=== PATIENT | male | born 1960 | race Hispanic/Latino ===

== ENCOUNTER 2016-12-28 13:46 | Outpatient (CLI) | payer BC ==
[~2016-12-28] VITALS: Ht 170.2 cm; Wt 97.5 kg
[2016-12-28] MEDS ORDERED: NAPR220T66 PO (14:39)
[2016-12-30] MEDS ORDERED: HYDR-3812 PO (09:13)
== END 2016-12-28 15:24 ==
LOC: PREOP 13:46
PROVIDERS: ATTEND Surgery
DX: Z01.818 Encounter for other preprocedural examination (principal); L72.3 Sebaceous cyst

== ENCOUNTER 2016-12-30 07:36 | Day surgery (SDC) | payer BC ==
[~2016-12-30] VITALS: Ht 170.2 cm; Wt 97.5 kg
--- NOTE | 2016-12-30 07:35 | Progress Note-Pre Operative ---
Pre-Operative Progress Note H&P Reviewed The H&P was reviewed, patient examined and no changes noted. Date H&P Reviewed: Dec 30, 2016 Time H&P Reviewed: 07:35 Pre-Operative Diagnosis: Sebaceous cyst -pre-sternal region HERNÁN LAIRD MD Dec 30, 2016 7:35 am
[~2016-12-30 07:36] MED LIST: NAPR220T66 PO
[2016-12-30 07:55] VITALS: BP 153/85
[2016-12-30] MEDS ORDERED: ceFAZolin 2 GM/50 ML NS 50 ML ONE (08:04)
[2016-12-30] MEDS ORDERED: FAMOTIDINE 20MG/2ML IV (PEPCID) ONE (08:10)
[2016-12-30] MEDS ORDERED: SCOPOLAMINE 1.5 MG (TRANSDERM-SCOP) PATCH ONE (08:10)
[2016-12-30] MEDS ORDERED: ONDANSETRON 4 MG/2 ML (SDV) Z0FRAN ONE (08:10)
[2016-12-30] MEDS ORDERED: LACTATED RINGERS 1,000 ML IV PRN (08:17)
[2016-12-30] MEDS ORDERED: ONDANSETRON 4 MG/2 ML (SDV) Z0FRAN IV ONE (08:30)
[2016-12-30] MEDS ORDERED: SCOPOLAMINE 1.5 MG (TRANSDERM-SCOP) PATCH TOP ONE (08:30)
[2016-12-30] MEDS ORDERED: ceFAZolin 2 GM/NS 50 ML IV ONE (08:30)
[2016-12-30] MEDS ORDERED: FAMOTIDINE 20MG/2ML IV (PEPCID) IV ONE (08:30)
[2016-12-30] MEDS ORDERED: CATHETER FLUSH 10 ML SYR IV PRN (08:30)
[2016-12-30] MEDS ORDERED: fentaNYL INJECTION 100 MCG/2 ML AMP ONE (08:40)
[2016-12-30] MEDS ORDERED: proPOfol 200 MG/20 ML (DIPRIVAN) VIAL IV ONE (08:40)
[2016-12-30] MEDS ORDERED: MIDAZOLAM 2 MG/2 ML (VERSED) VIAL ONE (08:40)
[2016-12-30] MEDS ORDERED: BUP/EPI 0.25% 1:200,000 (MARCAINE) 30 ML VIAL ONE (08:44)
--- NOTE | 2016-12-30 09:12 | Progress Note-Post Operative ---
Post-Operative Progess Note Surgeon (s)/Water Sander (s) Surgeon HERNÁN LAIRD MD Water Sander: Nilsa Calles Pre-Operative Diagnosis Sebaceous cyst -pre-sternal region Post-Operative Diagnosis Same Post-Op Procedure Note Date of Procedure: Dec 30, 2016 Name of Procedure Performed: Excision Description of the Procedure: See operative report Findings of the Procedure see operative report Anesthesia Type Gen. Estimated blood loss (mL): Minimal Specimen(s) collected/removed sebaceous cyst HERNÁN LAIRD MD Dec 30, 2016 9:12 am
[2016-12-30] MEDS ORDERED: HYDR-3812 PO (09:13)
--- NOTE | 2016-12-30 09:13 | Discharge Inst-Simple/Standard ---
Discharge Inst-Standard Discharge Medications New, Converted or Re-Newed RX: RX on Chart Patient Instructions/Follow Up Plan of Care/Instructions/FU: Dressings off in 48 hours. Follow with my nurse in 2 weeks for suture removal Activity as Tolerated: Yes Discharge Diet: No Restrictions HERNÁN LAIRD MD Dec 30, 2016 9:13 am
[2016-12-30] MEDS ORDERED: LACTATED RINGERS 1,000 ML IV ONE (09:21)
[2016-12-30] MEDS ORDERED: SEVOFLURANE (ULTANE) 15 ML INHAL SOLN ONE (09:21)
[2016-12-30] MEDS ORDERED: KETOROLAC 30 MG/ML VIAL ONE (09:22)
[2016-12-30] MEDS ORDERED: BUP/EPI 0.25% 1:200,000 (MARCAINE) 30 ML VIAL INJ ONE (09:45)
[2016-12-30] MEDS ORDERED: morphine INJ 10 MG/ML 1ML (SYR OR VIAL) IVP PRN (10:00)
[2016-12-30] MEDS ORDERED: ONDANSETRON 4 MG/2 ML (SDV) Z0FRAN IVP PRN (10:00)
[2016-12-30 10:15] VITALS: BP 133/79
[2016-12-30 10:45] VITALS: BP 136/78
--- NOTE | 2016-12-30 19:22 | OPERATIVE REPORT ---
DATE OF SERVICE: 12/30/2016 PREOPERATIVE DIAGNOSIS: A 3 cm sebaceous cyst, pre-sternal region. POSTOPERATIVE DIAGNOSIS: A 3 cm sebaceous cyst, pre-sternal region. OPERATION: Excision. SURGEON: Hernán Laird MD ANESTHESIA: General anesthesia. BLOOD LOSS: Minimal. FLUIDS: Crystalloid 400 mL. TYPE OF WOUND: Type 1 (clean wound). INDICATION FOR PROCEDURE: This gentleman presented with a longstanding sebaceous cyst over the pre-sternal region and requested excision. Informed consent was obtained. After reviewing the operative details and complications of post-op hematoma, wound infection and recurrence of the cyst. DESCRIPTION OF PROCEDURE: He was placed supine on the operating table and general anesthesia induced using a laryngeal mask airway. A gram of Ancef was administered intravenously as prophylaxis against wound infection. Sequential compression devices were placed around these next to minimize the risk of any thrombus. Pre-sternal region was prepared and draped in the usual sterile manner. Pre-____ established using 0.25% Marcaine with epinephrine. An elliptical incision about 4 cm long was made and the sebaceous cyst excised intact. Hemostasis was achieved using cautery and the incision closed using a combination of 3-0 and 4-0 Nylon sutures in an interrupted fashion. A pressure dressing was then applied. He tolerated the procedure well, was extubated in the operating room and taken to the recovery room in stable condition. [place], sponges and instruments were correct at the end of the operation. Job ID: [id number] DocumentID: [id number] Dictated Date: 12/30/2016 09:26:00 Bag Sealer Date: 12/30/2016 09:55:30 Dictated By: HERNÁN LAIRD MD
== END 2016-12-30 11:00 | disposition home or self-care (01) ==
LOC: SDC 07:36
PROVIDERS: ATTEND Surgery
DX: L72.0 Epidermal cyst (principal)
CPT/HCPCS: 87081; 88304